=== PATIENT | male | born 1980 | race Caucasian/White ===

== ENCOUNTER 2021-04-29 10:55 | Emergency (ER) | payer OTHER ==
[2021-04-29 13:18] LABS: RED BLOOD COUNT 5.32 M/UL (4.20-5.50); WHITE BLOOD COUNT 8.8 K/UL (4.5-11.0)
[2021-04-29 14:19] LABS: BUN/CREATININE RATIO 16 (0-10)
[2021-04-29] MEDS ORDERED: NAPROSYN500 MG PO (15:25)
== END 2021-04-29 15:50 | disposition home or self-care (01) ==
LOC: ER1 10:55
PROVIDERS: Nurse Practitioner
DX: M94.0 Chondrocostal junction syndrome [Tietze] (principal); E11.9 Type 2 diabetes mellitus without complications; I10 Essential (primary) hypertension; E78.5 Hyperlipidemia, unspecified; J44.9 Chronic obstructive pulmonary disease, unspecified; Z90.89 Acquired absence of other organs; Z88.8 Allergy status to other drugs, medicaments and biological substances
CPT/HCPCS: 71045; 80053; 81001; 82550; 82553; 83874; 84484; 85025; 85379; 93005; 96374; 99285; J1885

== ENCOUNTER 2021-07-16 15:01 | Emergency (ER) | payer OTHER ==
[~2021-07-16 15:01] MED LIST: NAPROSYN500 MG PO
[2021-07-16] MEDS ORDERED: FLONASE 0.05% N16 GM (15:43)
[2021-07-16] MEDS ORDERED: DELSYM30 MG/5 ML PO (15:43)
[2021-07-16] MEDS ORDERED: MEDROL DOSEPAK 24 MG PO (15:43)
[2021-07-16] MEDS ORDERED: IBUPROFEN600 MG PO (15:43)
== END 2021-07-16 16:01 | disposition home or self-care (01) ==
LOC: ER1 15:01
DX: U07.1 COVID-19 (principal); E11.9 Type 2 diabetes mellitus without complications; J44.9 Chronic obstructive pulmonary disease, unspecified; Z88.8 Allergy status to other drugs, medicaments and biological substances
CPT/HCPCS: 87081; 87880; 99283; U0003